=== PATIENT | female | born 1990 | race Caucasian/White ===

== ENCOUNTER 2022-10-05 15:56 | Outpatient (CLI) | payer BC ==
[2022-10-05 16:48] LABS: Hemoglobin 14.1 g/dL (12.0-15.5); Mean Corpuscular HGB CONC 33.8 g/dL (32.0-36.0); Mean Corpuscular Hemoglobin 31.5 pg (27.0-33.0); Mean Corpuscular Volume 93.3 fl (81.6-98.3); Mean Platelet Volume 9.2 fl (7.4-10.4); Platelet Count 394 10x3/uL (150-450); RBC Distribution Width 12.9 % (11.5-14.5); Red Blood Cell (RBC) Count 4.47 10x6/uL (3.90-5.03); White Blood Cell (WBC) Count 11.6 10x3/uL (3.5-10.5)
[2022-10-05 17:11] LABS: Anion Gap 13 mmol/L (10-20); BUN (Urea Nitrogen) 17 mg/dL (7.0-18.7); Calc. Creatinine Clearance 0 mL/min (70-130); Calcium 9.7 mg/dL (7.8-10.44); Carbon Dioxide 22 mmol/L (22-29); Chloride 106 mmol/L (98-107); Estimated GFR 91; Glucose 91 mg/dL (70-105); Potassium 4.3 mmol/L (3.5-5.1); Sodium 137 mmol/L (136-145)
[2022-10-05 17:13] LABS: BHCG - Serum Negative (NEGATIVE); Pregs Control Background? CLEAR/WHITE (CLR/WHITE); Pregs Control Bar Appear? YES (CONTROL BAR)
== END 2022-10-05 15:57 | disposition home or self-care (01) ==
LOC: CSHLAB 15:56
PROVIDERS: ATTEND Obstetrics & Gynecology
DX: Z01.812 Encounter for preprocedural laboratory examination (principal); N92.6 Irregular menstruation, unspecified; N94.6 Dysmenorrhea, unspecified
CPT/HCPCS: 80048; 84703; 85027

== ENCOUNTER 2022-10-08 05:49 | Day surgery (SDC) | payer BC ==
[2022-10-06 14:14] VITALS: BMI 28.3
[2022-10-08] MEDS ORDERED: Midazolam HCl 2 mg/2 ml Vial ONE (06:47)
[2022-10-08] MEDS ORDERED: Fentanyl 100 MCG/2 ML VIAL ONE ×2 (06:51→09:38)
[2022-10-08] MEDS ORDERED: Lidocaine 1% PF 5 ML VIAL ONE (06:51)
[2022-10-08] MEDS ORDERED: PROPOFOL 20 ML ONE (06:51)
[2022-10-08] MEDS ORDERED: Dexamethasone 4 mg/ml Vial ONE (06:53)
[2022-10-08] MEDS ORDERED: Ondansetron PF 4 MG/2 ML Vial ONE (06:53)
[2022-10-08] MEDS ORDERED: CEFAZOLIN 2 GM VIAL ONE (06:56)
[2022-10-08] MEDS ORDERED: Ketorolac Tromethamine 30 MG/ML VIAL ONE (07:48)
== END 2022-10-08 09:05 | disposition home or self-care (01) ==
LOC: CSHSDC 05:49
PROVIDERS: ATTEND Obstetrics & Gynecology
PROC: 0UDB8ZZ Extraction of Endometrium, Via Natural or Artificial Opening Endoscopic (ICD-10-PCS; principal; 2022-10-08)
DX: N92.1 Excessive and frequent menstruation with irregular cycle (principal); N94.6 Dysmenorrhea, unspecified; Z79.899 Other long term (current) drug therapy
CPT/HCPCS: 36415; 86850; 86900; 86901; 88305; J1100; J1885; J2250; J2405; J2704; J3010